=== PATIENT | male | born 1955 | race Caucasian/White ===

== ENCOUNTER 2022-06-06 15:59 | Emergency (ER) | payer BC ==
--- NOTE | 2022-06-06 16:39 | RAD REPORT ---
EXAM DESCRIPTION: RAD - Chest Single View - 06/06/2022 4:32 pm CLINICAL HISTORY: CHEST PAIN Chest pain. COMPARISON: No comparisons FINDINGS: Portable technique limits examination quality. The lungs are grossly clear. The heart is normal in size. No displaced fractures. IMPRESSION: No acute intrathoracic process suspected.
[2022-06-06 16:41] LABS: Absolute Lymphocytes (CBC) 1.2 K/uL (0.7-4.9); Hematocrit 44.8 % (39.6-49.0); Lymphocytes % 21.9 % (15.3-44.8); MCV 93.2 fL (80-100); MPV 7.3 fL (7.6-11.3)
[2022-06-06 16:43] LABS: Protime INR 1.03
[2022-06-06 16:56] LABS: Albumin 4.1 g/dL (3.4-5.0); Bilirubin Direct 0.2 mg/dL (0-0.2); Bilirubin Total 0.4 mg/dL (0.2-1.0); Potassium 3.9 mmol/L (3.5-5.1); Protein, Total 7.9 g/dL (6.4-8.2); Troponin High Sensitivity 3.6 pg/mL (<58.9)
[2022-06-06] MEDS ORDERED: FENTANYL CITR 100 MCG/2 ML ONE (17:34)
--- NOTE | 2022-06-06 17:56 | RAD REPORT ---
EXAM DESCRIPTION: CT - Angio Aorta For Dissection - 06/06/2022 5:42 pm CLINICAL HISTORY: Chest pain radiating to the back. chest pain,history of enlarged aorta COMPARISON: No comparisons TECHNIQUE: CT angiography of the aorta was performed with MIPs. All CT scans are performed using dose optimization technique as appropriate and may include automated exposure control or mA/KV adjustment according to patient size. FINDINGS: A left aortic arch is present with normal branching pattern of the great vessels.No acute aortic finding is seen such as aneurysm, penetrating ulcer or dissection. The celiac axis, KENNEY and r enal arteries are patent. Moderate hard plaque is seen at the origin of the SMA with mild stenosis. A ccessory left renal artery. No evidence of pulmonary embolism. Mild COPD. Mild nodular contour to the liver parenchyma is seen suggesting cirrhosis.The spleen, pancreas, adren al glands and kidneys are within normal limits for arterial phase imaging.Benign left renal cyst. No bowel obstruction, free fluid or abscess.Normal appendix. Sigmoid diverticulosis coli is present w ithout diverticulitis.No pathologic enlarged lymphadenopathy identified. Moderate lumbar degenerative changes. IMPRESSION: No acute aortic finding is demonstrated. Mild COPD. Mild liver cirrhosis.
[2022-06-06] MEDS ORDERED: ASPIRIN 81 MG CHEWABLE TABLET ONE (18:32)
--- NOTE | 2022-06-06 20:41 | ER ---
Nurse's Notes [facility] Name: Antione Ware Age: 66 yrs Sex: Male : 1955 Arrival Date: 06/06/2022 Time: 16:04 Bed 17 Private MD: Diagnosis: Chest pain, unspecified;Anxiety disorder, unspecified;Elevated blood-pressure reading, without diagnosis of hypertension Presentation: 06/06 16:15 Chief complaint: Patient states: "I am having some chest pain that has been going on jd3 for about a month now, but here in the last week and especially this week it has gotten a lot worse and more consistent. I am now having left jaw cramping and feeling numb in all my extremities.". Coronavirus screen: At this time, the client does not indicate any symptoms associated with coronavirus-19. Ebola Screen: No symptoms or risks identified at this time. Initial Sepsis Screen: Does the patient meet any 2 criteria? No. Patient's initial sepsis screen is negative. Does the patient have a suspected source of infection? No. Patient's initial sepsis screen is negative. Risk Assessment: Do you want to hurt yourself or someone else? Patient reports no desire to harm self or others. Onset of symptoms was May 06, 2022. 16:15 Method Of Arrival: Ambulatory jd3 16:15 Acuity: AYSHA 3 jd3 Historical: - Allergies: 16:19 No Known Allergies; jd3 - Home Meds: 16:19 None [Active]; jd3 - PMHx: 16:19 inlarged aorta; COPD; jd3 - Immunization history:: Adult Immunizations up to date, Client reports having NOT received the Covid vaccine. Flu vaccine is not up to date. - Social history:: Smoking status: Patient denies any tobacco usage or history of. Screenin:49 Abuse screen: Denies threats or abuse. Denies injuries from another. Nutritional mb8 screening: No deficits noted. Tuberculosis screening: No symptoms or risk factors identified. Fall Risk None identified. Assessment: 16:47 Pain: Complains of pain in chest Pain radiates to left jaw, left arm Pain currently is mb8 5 out of 10 on a pain scale. Pain began 4 months ago, worse 1 month ago. Cardiovascular: Reports chest pain, Heart tones S1 S2 Capillary refill < 3 seconds Pulses are all present. are 3+ in right radial artery and left radial artery Rhythm is sinus rhythm Chest pain is described as mild, quality is sharp, is located in left radiates to left arm(s) jaw(s) began 4 months ago. Respiratory: No deficits noted. Breath sounds are clear bilaterally. 18:42 Reassessment: Patient and/or family updated on plan of care and expected duration. Pain mb8 level reassessed. Patient is alert, oriented x 3, equal unlabored respirations, skin warm/dry/pink. Vital Signs: 16:20 BP 179 / 107; Pulse 89; Resp 18 S; Pulse Ox 99% on R/A; Weight 99.79 kg (R); Height 6 jd3 ft. 3 in. (190.50 cm) (R); Pain 5/10; 18:20 BP 137 / 89; Pulse 56; Resp 18; Pulse Ox 99% ; Pain 3/10; mb8 18:43 BP 141 / 88; Pulse 57; Resp 16; Pulse Ox 99% ; Pain 3/10; mb8 20:26 BP 158 / 86; Pulse 53; Resp 17; Pulse Ox 98% on R/A; ja4 16:20 Body Mass Index 27.50 (99.79 kg, 190.50 cm) jd3 ED Course: 16:04 Patient arrived in ED. rg4 16:08 Kaden Koehler PA is PHCP. cp 16:08 Kaden Arvizu MD is Attending Physician. cp 16:19 Triage completed. jd3 16:20 Inserted saline lock: 18 gauge in right antecubital area, using aseptic technique. mb8 Blood collected. Patient maintains SpO2 saturation greater than 95% on room air. 16:21 Arm band placed on. EKG completed in triage. Results shown to . jd3 16:23 EKG done, by ED staff, reviewed by Kaden Arvizu MD. mb7 16:23 Basic Metabolic Panel Sent. mb7 16:23 CBC with Diff Sent. mb7 16:23 Troponin HS Sent. mb7 16:23 LFT's Sent. mb7 16:23 Magnesium Sent. mb7 16:23 NT PRO-BNP Sent. mb7 16:23 PT-INR Sent. mb7 16:23 Lipase Sent. mb7 16:34 XRAY Chest (1 view) In Process Unspecified. EDMS 16:47 Vince Borja, RN is Primary Nurse. mb8 16:50 Patient has correct armband on for positive identification. Placed in gown. Bed in low mb8 position. Call light in reach. Side rails up X2. Client placed on continuous cardiac and pulse oximetry monitoring. NIBP monitoring applied. senior business objects developer on. 16:50 No provider procedures requiring assistance completed. mb8 17:43 CT Aorta for Dissection In Process Unspecified. EDMS 20:20 EKG done, by ED staff, reviewed by Kaden WELCH. jw7 20:40 Dwight Guzman MD is Referral Physician. cp 20:40 Michelle Zee MD is Referral Physician. cp 20:51 IV discontinued, intact, bleeding controlled, No redness/swelling at site. Pressure ja4 dressing applied. Administered Medications: 17:29 Drug: fentaNYL (PF) 25 mcg Route: IVP; Site: right antecubital; mb8 18:21 Follow up: Response: No adverse reaction; Pain is decreased mb8 18:34 CANCELLED (Inappropriate at this time): Lisinopril 20 mg PO once mb8 18:34 CANCELLED (Inappropriate at this time): hydrALAZINE 5 mg IVP once mb8 18:38 Drug: Aspirin Chewable Tablet 324 mg Route: PO; mb8 Medication: 16:49 VIS not applicable for this client. mb8 Outcome: 20:41 Discharge ordered by MD. cp 20:51 Discharged to home ambulatory. ja4 20:51 Condition: good 20:51 Discharge instructions given to patient, Instructed on discharge instructions, follow up and referral plans. medication usage, Demonstrated understanding of instructions, follow-up care, medications, Prescriptions given X 1. 20:53 Patient left the ED. ja4 Signatures: Dispatcher [employer] EDIA Kaden Koehler PA PA cp Garcia, Rubi rg4 Mateo Nathan RN RN jd3 Breneman, Mary mb7 Aniya Ross7 Adi Lynn RN RN ja4 Bates, Michael, RN RN mb8
--- NOTE | 2022-06-06 20:41 | EDPHYS ---
Physician Documentation [facility] Name: Antione Ware Age: 66 yrs Sex: Male : 1955 Arrival Date: 06/06/2022 Time: 16:04 Bed 17 Private MD: ED Physician Kaden Arvizu HPI: 06/06 16:30 This 66 yrs old Male presents to ER via Ambulatory with complaints of Chest Pain, cp Nausea, Jaw Pain, Weakness, Arm Pain. 16:30 The patient or guardian reports chest pain that is located primarily in the anterior cp chest wall. Onset: over 1 month ago. The chest pain is described as a pressure, constant. 16:30 Associated signs and symptoms: Pertinent positives: jaw pain and general weakness. cp Duration: The patient or guardian reports a single episode, that is still ongoing, and worsening. Modifying factors: The symptoms are alleviated by nothing. the symptoms are aggravated by nothing. Patient reports history of enlarged aorta and having normal exercise stress test about 2 years ago. Historical: - Allergies: 16:19 No Known Allergies; jd3 - Home Meds: 16:19 None [Active]; jd3 - PMHx: 16:19 inlarged aorta; COPD; jd3 - Immunization history:: Adult Immunizations up to date, Client reports having NOT received the Covid vaccine. Flu vaccine is not up to date. - Social history:: Smoking status: Patient denies any tobacco usage or history of. ROS: 16:35 Constitutional: Negative for body aches, chills, fever, poor PO intake. cp 16:35 Eyes: Negative for injury, pain, redness, and discharge. cp 16:35 ENT: Negative for drainage from ear(s), ear pain, sore throat, difficulty swallowing, difficulty handling secretions. 16:35 Cardiovascular: Positive for chest pain, Negative for edema, palpitations. 16:35 Respiratory: Negative for cough, shortness of breath, wheezing. 16:35 Abdomen/GI: Negative for abdominal pain, nausea, vomiting, and diarrhea. 16:35 Back: Negative for pain at rest, pain with movement, radiated pain. 16:35 Neuro: Positive for weakness, Negative for altered mental status, dizziness, headache, syncope. 16:35 All other systems are negative. Exam: 16:18 ECG was reviewed by the Attending Physician. cp 16:38 Constitutional: The patient appears in no acute distress, alert, awake, cp non-diaphoretic, non-toxic, well developed, well nourished. 16:38 Head/Face: Normocephalic, atraumatic. cp 16:38 Eyes: Periorbital structures: appear normal, Conjunctiva: normal, no exudate, no injection, Sclera: no appreciated abnormality, Lids and lashes: appear normal, bilaterally. 16:38 ENT: External ear(s): are unremarkable, Nose: is normal, Mouth: Lips: moist, Oral mucosa: moist, Posterior pharynx: Airway: no evidence of obstruction, patent. 16:38 Neck: ROM/movement: is normal, is supple, without pain, no range of motions limitations, no nuchal rigidity. 16:38 Chest/axilla: Inspection: normal. 16:38 Cardiovascular: Rate: normal, Rhythm: regular, Edema: is not appreciated, JVD: is not appreciated. 16:38 Respiratory: the patient does not display signs of respiratory distress, Respirations: normal, no use of accessory muscles, no retractions, labored breathing, is not present, Breath sounds: are clear throughout, no decreased breath sounds, no stridor, no wheezing. 16:38 Abdomen/GI: Inspection: abdomen appears normal, Bowel sounds: active, all quadrants, Palpation: abdomen is soft and non-tender, in all quadrants. 16:38 Back: pain, is absent, ROM is normal. 16:38 Neuro: Orientation: to person, place \T\ time. Mentation: is normal, Motor: moves all fours, strength is normal, Sensation: is normal. 19:53 ECG was reviewed by the Attending Physician. cp Vital Signs: 16:20 BP 179 / 107; Pulse 89; Resp 18 S; Pulse Ox 99% on R/A; Weight 99.79 kg (R); Height 6 jd3 ft. 3 in. (190.50 cm) (R); Pain 5/10; 18:20 BP 137 / 89; Pulse 56; Resp 18; Pulse Ox 99% ; Pain 3/10; mb8 18:43 BP 141 / 88; Pulse 57; Resp 16; Pulse Ox 99% ; Pain 3/10; mb8 20:26 BP 158 / 86; Pulse 53; Resp 17; Pulse Ox 98% on R/A; ja4 16:20 Body Mass Index 27.50 (99.79 kg, 190.50 cm) jd3 MDM: 16:09 Patient medically screened. jesus 20:35 Data reviewed: vital signs, nurses notes, lab test result(s), EKG, radiologic studies, cp CT scan, plain films. 20:35 The patient was given aspirin in the Emergency Department. Test interpretation: by ED cp physician or midlevel provider: ECG, plain radiologic studies. ED course: Patient reports persistent chest pain times at least 1 month. EKGs and troponin levels normal. Patient admits to increase stress at home with taking care of 2 ailing sons. Will discharge to home to f/u outpatient with cardiology. 06/06 16:14 Order name: Basic Metabolic Panel; Complete Time: 17:17 06/06 20:29 Interpretation: Normal except: CL 109; GLUC 120; GFR 67. cp 06/06 16:14 Order name: CBC with Diff; Complete Time: 17:17 cp 06/06 16:14 Order name: LFT's; Complete Time: 17:17 cp 06/06 16:14 Order name: Magnesium; Complete Time: 17:17 cp 06/06 16:14 Order name: NT PRO-BNP; Complete Time: 17:17 cp 06/06 16:14 Order name: PT-INR; Complete Time: 17:17 cp 06/06 16:14 Order name: Troponin HS; Complete Time: 17:17 cp 06/06 16:14 Order name: XRAY Chest (1 view); Complete Time: 17:17 cp 06/06 16:14 Order name: CT Aorta for Dissection; Complete Time: 17:58 cp 06/06 17:59 Interpretation: Report reviewed. 06/06 16:15 Order name: Lipase; Complete Time: 17:17 cp 06/06 19:39 Order name: Troponin High Sensitivity; Complete Time: 20:29 cp 06/06 20:29 Interpretation: Reviewed. 06/06 16:14 Order name: EKG; Complete Time: 16:15 cp 06/06 16:14 Order name: Cardiac monitoring; Complete Time: 16:23 cp 06/06 16:14 Order name: EKG - Nurse/Tech; Complete Time: 16:23 cp 06/06 16:14 Order name: IV Saline Lock; Complete Time: 16:23 cp 06/06 16:14 Order name: Labs collected and sent; Complete Time: 16:23 cp 06/06 16:14 Order name: O2 Per Protocol; Complete Time: 16:23 cp 06/06 16:14 Order name: O2 Sat Monitoring; Complete Time: 16:23 cp 06/06 19:39 Order name: EKG; Complete Time: 19:39 cp 06/06 19:39 Order name: EKG - Nurse/Tech; Complete Time: 20:22 cp EC:18 Rate is 87 beats/min. Rhythm is regular. AR interval is normal. QRS interval is normal. cp QT interval is normal. T waves are Inverted in lead aVR. Interpreted by me. Reviewed by me. 19:53 Rate is 51 beats/min. Rhythm is regular. AR interval is normal. QRS interval is normal. cp QT interval is normal. T waves are Inverted in lead aVR. Interpreted by me. Reviewed by me. Administered Medications: 17:29 Drug: fentaNYL (PF) 25 mcg Route: IVP; Site: right antecubital; mb8 18:21 Follow up: Response: No adverse reaction; Pain is decreased mb8 18:34 CANCELLED (Inappropriate at this time): Lisinopril 20 mg PO once mb8 18:34 CANCELLED (Inappropriate at this time): hydrALAZINE 5 mg IVP once mb8 18:38 Drug: Aspirin Chewable Tablet 324 mg Route: PO; mb8 Disposition Summary: 06/06/22 20:41 Discharge Ordered Location: Home cp Problem: new cp Symptoms: have improved cp Condition: Stable cp Diagnosis - Chest pain, unspecified cp - Anxiety disorder, unspecified cp - Elevated blood-pressure reading, without diagnosis of hypertension cp Followup: cp - With: Dwight Guzman MD - When: 2 - 3 days - Reason: chest pain Followup: cp - With: Michelle Zee MD - When: 2 - 3 days - Reason: anxiety Discharge Instructions: - Discharge Summary Sheet cp - Nonspecific Chest Pain, Adult cp - Aspirin and Your Heart cp - Generalized Anxiety Disorder, Adult cp - Managing Stress, Adult cp - Form - Blood Pressure Record Sheet cp - Managing Anxiety, Adult cp - How to Take Your Blood Pressure cp Forms: - Medication Reconciliation Form cp - Thank You Letter cp - Antibiotic Education cp - Prescription Opioid Use cp Prescriptions: - Vistaril 25 mg Oral capsule - take 1 capsule by ORAL route 3 times per day as needed for anxiety; 30 capsule; cp Refills: 0, Product Selection Permitted Signatures: Dispatcher [employer] EDKaden Poole MD MD cha Page, Corey, PA PA cp Davies, Jonathon, RN RN jd3 Vince Borja RN RN mb8 Corrections: (The following items were deleted from the chart) 18:34 18:01 Lisinopril 20 mg PO once ordered. cp mb8 18:34 18:01 hydrALAZINE 5 mg IVP once ordered. cp [id number]
[2022-06-07 10:36] VITALS: BP 158/86; O2SAT 98
--- NOTE | 2022-06-07 17:10 | EKG ---
Test Date: 2022-06-06 Test Time: 16:15:49 Grip: JESSEE MEASUREMENT RESULTS: Intervals: Rate: 87 NH: 172 QRSD: 100 QT: 350 QTc: 421 [place]: P: 58 NH: 172 QRS: -15 T: 59 INTERPRETIVE STATEMENTS: Normal sinus rhythm Normal ECG No previous ECG available for comparison Electronically Signed On 06-07-22 17:06:50 CDT by Edwin Block
--- NOTE | 2022-06-07 17:10 | EKG ---
Test Date: 2022-06-06 Test Time: 19:49:52 [employer] Worker: JESSEE MEASUREMENT RESULTS: Intervals: Rate: 51 SC: 192 QRSD: 98 QT: 424 QTc: 390 [place]: P: 20 SC: 192 QRS: 5 T: 44 INTERPRETIVE STATEMENTS: Sinus bradycardia Otherwise normal ECG Compared to ECG 06/06/2022 16:15:49 Sinus rhythm no longer present Electronically Signed On 06-07-22 17:06:46 CDT by Edwin Block
== END 2022-06-06 20:53 | disposition home or self-care (01) ==
LOC: ER 15:59
DX: R07.89 Other chest pain (principal); F41.9 Anxiety disorder, unspecified; R03.0 Elevated blood-pressure reading, without diagnosis of hypertension; J44.9 Chronic obstructive pulmonary disease, unspecified
CPT/HCPCS: 93005 ×2; 85025; 80048; 36415; 83735; 85610; 80076; 84484 ×2; 83690; 83880; 71275; 74175; 71045; 96374; 99285; Q9967; J3010